=== PATIENT | male | born 1955 | race Caucasian/White ===

== ENCOUNTER 2018-04-12 11:52 | Inpatient (IN) | payer OTHER ==
[~2018-04-12] VITALS: Ht 185.4 cm; Wt 86.2 kg
[~2018-04-12 11:52] MED LIST: CLONAZEPAM1 MG PO; FENTANYL1 EAC1; FENTANYL1 EAC4 TD; KAOPECTATE240 MG PO; LYRICA50 MG PO; NEURONTIN300 MG; PERCOGESIC 3251 EACH; RESTORIL7.5 MG; SERTRALINE HCL25 MG PO; ZOLOFT25 MG
[2018-04-12] MEDS ORDERED: FORTAMET1000 MG (13:23)
== END 2018-04-21 18:50 | disposition home health service (06) | DRG 592 ==
LOC: ER 11:52 → SEC-K 18:27 → MEDJ 18:27
PROC: BR29ZZZ Computerized Tomography (CT Scan) of Lumbar Spine (ICD-10-PCS; 2018-04-12)
PROC: BB24ZZZ Computerized Tomography (CT Scan) of Bilateral Lungs (ICD-10-PCS; principal; 2018-04-13)
PROC: BR39Y0Z Magnetic Resonance Imaging (MRI) of Lumbar Spine using Other Contrast, Unenhanced and Enhanced (ICD-10-PCS; 2018-04-13)
PROC: 4A033R1 Measurement of Arterial Saturation, Peripheral, Percutaneous Approach (ICD-10-PCS; 2018-04-14)
PROC: 3E0F7GC Introduction of Other Therapeutic Substance into Respiratory Tract, Via Natural or Artificial Opening (ICD-10-PCS; 2018-04-17)
PROC: 2W15X6Z Compression of Back using Pressure Dressing (ICD-10-PCS; 2018-04-18)
DX: L89.154 Pressure ulcer of sacral region, stage 4 (principal); C90.00 Multiple myeloma not having achieved remission; N39.0 Urinary tract infection, site not specified; I10 Essential (primary) hypertension; K59.09 Other constipation; M54.5 Low back pain; E11.42 Type 2 diabetes mellitus with diabetic polyneuropathy; Z74.01 Bed confinement status; J84.113 Idiopathic non-specific interstitial pneumonitis; G47.09 Other insomnia; B95.2 Enterococcus as the cause of diseases classified elsewhere; B96.1 Klebsiella pneumoniae [K. pneumoniae] as the cause of diseases classified elsewhere; B96.29 Other Escherichia coli [E. coli] as the cause of diseases classified elsewhere; B95.61 Methicillin susceptible Staphylococcus aureus infection as the cause of diseases classified elsewhere; B96.5 Pseudomonas (aeruginosa) (mallei) (pseudomallei) as the cause of diseases classified elsewhere; N47.2 Paraphimosis; J84.112 Idiopathic pulmonary fibrosis
CPT/HCPCS: 72149

== ENCOUNTER 2018-07-15 10:54 | Inpatient (IN) | payer OTHER ==
[~2018-07-15] VITALS: Ht 182.9 cm; Wt 90.7 kg
[~2018-07-15 10:54] MED LIST changes: +BACLOFEN10 MG PO; +CYMBALTA60 MG PO; +FORTAMET1000 MG; +LIDODERM1 EACH TOP; +RESTORIL15 MG PO
[2018-07-27] MEDS ORDERED: SERTRALINE HCL25 MG PO (11:31)
[2018-07-27] MEDS ORDERED: BENZONATATE200 M1 PO (11:31)
[2018-07-27] MEDS ORDERED: Tussi-Organidin Dm-S PO (11:31)
[2018-07-27] MEDS ORDERED: RESTORIL15 MG PO (11:31)
== END 2018-07-27 11:42 | disposition home health service (06) | DRG 606 ==
LOC: ER 10:54 → MEDI 14:59 → MEDJ 07-17 20:05
PROC: 8E0ZXY6 Isolation (ICD-10-PCS; 2018-07-17)
PROC: 2W05X6Z Change Pressure Dressing on Back (ICD-10-PCS; principal; 2018-07-18)
PROC: 2W05X6Z Change Pressure Dressing on Back (ICD-10-PCS; 2018-07-22)
DX: L27.1 Localized skin eruption due to drugs and medicaments taken internally (principal); L89.154 Pressure ulcer of sacral region, stage 4; C90.00 Multiple myeloma not having achieved remission; M86.18 Other acute osteomyelitis, other site; G82.21 Paraplegia, complete; T36.8X5A Adverse effect of other systemic antibiotics, initial encounter; Y92.098 Other place in other non-institutional residence as the place of occurrence of the external cause; B96.1 Klebsiella pneumoniae [K. pneumoniae] as the cause of diseases classified elsewhere; B95.2 Enterococcus as the cause of diseases classified elsewhere; B95.62 Methicillin resistant Staphylococcus aureus infection as the cause of diseases classified elsewhere; E11.65 Type 2 diabetes mellitus with hyperglycemia

== ENCOUNTER 2018-10-04 11:20 | Emergency (ER) | payer OTHER ==
[~2018-10-04] VITALS: Ht 188 cm; Wt 84.8 kg
[~2018-10-04 11:20] MED LIST changes: +BENZONATATE200 M1 PO; +Tussi-Organidin Dm-S PO
== END 2018-10-04 15:52 | disposition home or self-care (01) ==
LOC: ER 11:20
DX: R33.8 Other retention of urine (principal)

== ENCOUNTER → 2018-10-21 | Emergency (ER) | payer OTHER ==
[~2018-10-21] VITALS: Ht 185.4 cm; Wt 84.4 kg
== END | disposition designated cancer center or children's hospital (05) ==
LOC: ER 12:54
DX: N45.4 Abscess of epididymis or testis (principal)

== ENCOUNTER 2019-01-17 10:08 | Inpatient (IN) | payer OTHER ==
[~2019-01-17] VITALS: Ht 185.4 cm; Wt 94.3 kg
--- NOTE | 2019-01-17 10:27 | NUR ---
PACIENTE ALERTA Y ORIENTADO POR MAXIMUS ESFERAS QUIEN REFIERE VENIR POR CELULITIS EN MANO RT LUEGO DE SUMIT GOLPEADO UN OBJETO EL VIERNES. SE OBSERVA MANO CON EDEMA, ENROJECIMIENTO Y SECRECIONES COLOR CLEAR.
--- NOTE | 2019-01-17 10:30 | NUR ---
PACIENTE CON ULCERA EN AREA SACRAL Y WEBBER CATETER INSERTADO EN NYE HOGAR POR ENFERMERA VISITANTE.
--- NOTE | 2019-01-17 11:09 | NUR ---
SE ADMINISTRAN MEDICAMENTOS Y SE ADAN MUESTRAS, PACIENTE AL MOMENTO ESTABLE, SIGNOS VITALES ESTABLES. SE CONTINUA MONITOREANDO POR CAMBIOS.
--- NOTE | 2019-01-17 15:55 | NUR ---
SE RECIBE PTE ALERTA Y ORIENTADO X3 EN CIARRA CON BARANADAS ELEVADAS. PTE AL MOMENTO REFIERE 0 EN ESCALA DE DOLOR. PTE SE OBSERVA CON H/L EL CUAL SE ENCUENTRA PATENTE DAVID DE EDEMA Y ENROJECIMIENTO. PTE CON SONDA URINARIA COLOCADA LA CUAL ES DEL PTE. PTE EN ESPERA DE CONSULTA CON MEDICINA INTERNA POR CELULITIS. PTE SE CONTINUA MONITORIANDO POR CAMBIOS.
== END 2019-01-25 17:27 | DRG 602 ==
LOC: ER 10:08 → SURH 19:10 → SEC-K 19:10 → MEDJ 19:10 → SEC-K 01-18 04:59 → SURH 01-18 16:50 → MEDJ 01-19 16:43
PROVIDERS: ADMIT Internal Medicine
PROC: BP4NZZZ Ultrasonography of Right Hand (ICD-10-PCS; 2019-01-17)
PROC: 8E0ZXY6 Isolation (ICD-10-PCS; principal; 2019-01-19)
DX: L03.113 Cellulitis of right upper limb (principal); L89.154 Pressure ulcer of sacral region, stage 4; C90.00 Multiple myeloma not having achieved remission; G82.20 Paraplegia, unspecified; N47.2 Paraphimosis; E11.65 Type 2 diabetes mellitus with hyperglycemia; G47.09 Other insomnia; J84.89 Other specified interstitial pulmonary diseases; J84.111 Idiopathic interstitial pneumonia, not otherwise specified; F32.9 Major depressive disorder, single episode, unspecified; R33.8 Other retention of urine; N48.89 Other specified disorders of penis; B95.61 Methicillin susceptible Staphylococcus aureus infection as the cause of diseases classified elsewhere; B96.89 Other specified bacterial agents as the cause of diseases classified elsewhere

== ENCOUNTER 2019-03-16 11:58 | Inpatient (IN) | payer OTHER ==
[~2019-03-16] VITALS: Ht 172.7 cm; Wt 90.7 kg
[2019-03-22] MEDS ORDERED: INTESTINEX680 M1 PO (14:41)
== END 2019-03-22 17:29 | disposition home or self-care (01) | DRG 803 ==
LOC: ER 11:58 → MEDJ 19:59 → SURH 19:59 → SEC-K 20:40 → SURH 21:17
PROVIDERS: ADMIT Internal Medicine
PROC: 30233N1 Transfusion of Nonautologous Red Blood Cells into Peripheral Vein, Percutaneous Approach (ICD-10-PCS; 2019-03-16)
PROC: 8E0ZXY6 Isolation (ICD-10-PCS; 2019-03-16)
PROC: 0JB70ZZ Excision of Back Subcutaneous Tissue and Fascia, Open Approach (ICD-10-PCS; principal; 2019-03-21)
DX: D50.0 Iron deficiency anemia secondary to blood loss (chronic) (principal); C90.00 Multiple myeloma not having achieved remission; N39.0 Urinary tract infection, site not specified; G58.8 Other specified mononeuropathies; L89.152 Pressure ulcer of sacral region, stage 2; F32.9 Major depressive disorder, single episode, unspecified; B96.4 Proteus (mirabilis) (morganii) as the cause of diseases classified elsewhere

== ENCOUNTER 2019-03-26 08:38 | Inpatient (IN) | payer OTHER ==
[~2019-03-26] VITALS: Ht 188 cm; Wt 94.3 kg
[~2019-03-26 08:38] MED LIST changes: +INTESTINEX680 M1 PO
== END 2019-04-09 20:40 | disposition expired | DRG 70 ==
LOC: ER 08:38 → SURH 20:06 → MEDJ 20:06 → SURH 20:51 → SEC-K 21:12 → SURH 03-27 00:12 → ICU 04-08 15:10
PROVIDERS: Anesthesiology Pain Medicine; ADMIT Internal Medicine
PROC: BW28ZZZ Computerized Tomography (CT Scan) of Head (ICD-10-PCS; 2019-03-26)
PROC: BR29ZZZ Computerized Tomography (CT Scan) of Lumbar Spine (ICD-10-PCS; 2019-03-26)
PROC: 4A033R1 Measurement of Arterial Saturation, Peripheral, Percutaneous Approach (ICD-10-PCS; 2019-03-26)
PROC: 00JU3ZZ Inspection of Spinal Canal, Percutaneous Approach (ICD-10-PCS; principal; 2019-04-02 10:00)
PROC: 5A1935Z Respiratory Ventilation, Less than 24 Consecutive Hours (ICD-10-PCS; 2019-04-08)
PROC: 0BH17EZ Insertion of Endotracheal Airway into Trachea, Via Natural or Artificial Opening (ICD-10-PCS; 2019-04-08)
PROC: B246ZZZ Ultrasonography of Right and Left Heart (ICD-10-PCS; 2019-04-08)
PROC: 3E0F7GC Introduction of Other Therapeutic Substance into Respiratory Tract, Via Natural or Artificial Opening (ICD-10-PCS; 2019-04-08)
PROC: 30233N1 Transfusion of Nonautologous Red Blood Cells into Peripheral Vein, Percutaneous Approach (ICD-10-PCS; 2019-04-09)
DX: G93.41 Metabolic encephalopathy (principal); J96.01 Acute respiratory failure with hypoxia; J81.0 Acute pulmonary edema; J18.1 Lobar pneumonia, unspecified organism; A41.89 Other specified sepsis; R65.21 Severe sepsis with septic shock; C90.01 Multiple myeloma in remission; N39.0 Urinary tract infection, site not specified; N17.8 Other acute kidney failure; D61.818 Other pancytopenia; F33.3 Major depressive disorder, recurrent, severe with psychotic symptoms; E87.2 Acidosis; B96.5 Pseudomonas (aeruginosa) (mallei) (pseudomallei) as the cause of diseases classified elsewhere; B95.61 Methicillin susceptible Staphylococcus aureus infection as the cause of diseases classified elsewhere; B95.2 Enterococcus as the cause of diseases classified elsewhere; L89.152 Pressure ulcer of sacral region, stage 2; E83.52 Hypercalcemia; R41.82 Altered mental status, unspecified; I95.89 Other hypotension; I46.9 Cardiac arrest, cause unspecified; E11.65 Type 2 diabetes mellitus with hyperglycemia; D64.89 Other specified anemias; G62.89 Other specified polyneuropathies; D72.818 Other decreased white blood cell count; I10 Essential (primary) hypertension; M54.5 Low back pain; M47.892 Other spondylosis, cervical region; M40.292 Other kyphosis, cervical region; K59.09 Other constipation; Z92.21 Personal history of antineoplastic chemotherapy; Z79.4 Long term (current) use of insulin